=== PATIENT | female | born 1955 | race Caucasian/White ===

== ENCOUNTER → 2016-11-01 | Outpatient (CLI) | payer OTHER | LOC: EMS 16:40 | PROVIDERS: ATTEND Family Medicine | DX: M48.32 Traumatic spondylopathy, cervical region (principal); W11.XXXA Fall on and from ladder, initial encounter; Y93.H2 Activity, gardening and landscaping; Y92.007 Garden or yard of unspecified non-institutional (private) residence as the place of occurrence of the external cause ==

== ENCOUNTER → 2016-11-01 | Emergency (ER) | payer OTHER ==
[~2016-11-01] VITALS: Ht 170.2 cm; Wt 54.0 kg
[~2016-11-01] MED LIST: BACITRACIN OINTMENT 0.9 GM PACKET TOP ONE; DENTAL BOX (GENERAL DRUG SUPPLY CHARGE) MM ONE; KETOROLAC 30 MG/ML (TORADOL) 1 ML VIAL IV ONE; LIDOCAINE/EPINEPHRINE 1% 1:100,000 (XYLOCAINE) 30 ML VIAL INJ ONE; NS IV 500 ML 500 ML IV SCH; ONDANSETRON 2 MG/ML (Z0FRAN) 2 ML VIAL IV ONE; SODIUM CHLORIDE FLUSH 10 ML SYR IV PRN; SODIUM CHLORIDE FLUSH 3 ML SYR IV ONE; TETANUS, DIPTHERIA, PERTUSSIS (ADACELL) VACCINE 0.5 ML VIAL IM ONE; fentaNYL 100 MCG/2 ML VIAL IV ONE
--- OUTSIDE RECORDS SUMMARY | 2016-11-01 13:55 | XMS REPORT | Continuity of Care Document ---
Author Author [facility] Address Unknown Phone Unavailable Allergies Medications Problems Date Dx Coded Attending Type Code Diagnosis Diagnosed By 08/10/2014 Yony De La Fuente MD Ot V76.12 09/01/2014 Yony De La Fuente MD Ot V15.89 09/01/2014 Yony De La Fuente MD Ot V76.12 11/01/2016 Yony De La Fuente MD Ot V76.12 OTH SCREEN MAMMO-MALIGN NEOPLASM OF KAVON 11/01/2016 Yony De La Fuente MD Ot V15.89 HX-HEALTH HAZARDS NEC 11/01/2016 Yony De La Fuente MD Ot V76.12 OTH SCREEN MAMMO-MALIGN NEOPLASM OF KAVON Procedures Results Encounters ACCT No. Visit Date/Time Discharge Status Pt. Type Provider Facility Loc./Unit Complaint [id number] 08/10/2014 08:14:00 2013 23:59:59 CLS Outpatient Sudhakar PERALTA [facility] RAD SCREENING [id number] BILATERAL INPLANTS [id number] 05/28/2013 13:42:00 2012 23:59:59 CLS Outpatient Sudhakar PERALTA [facility] RAD SCREENING V7612 IMPLANTS [id number] 11/01/2016 13:51:00 PEN [facility] ED
--- OUTSIDE RECORDS SUMMARY | 2016-11-01 13:58 | XMS REPORT | Continuity of Care Document ---
Author Author [facility] Address Unknown Phone Unavailable Allergies Medications Problems [...] Status Pt. Type Provider Facility Loc./Unit Complaint [id number] 08/10/2014 08:14:00 2013 23:59:59 CLS Outpatient Sudhakar PERALTA [facility] RAD SCREENING [id number] BILATERAL INPLANTS [id number] 05/28/2013 13:42:00 2012 23:59:59 CLS Outpatient Sudhakar PERALTA [facility] RAD SCREENING V7612 IMPLANTS [id number] 11/01/2016 13:54:00 ACT Emergency [facility] JESSI MELTON [facility] ED
--- NOTE | 2016-11-01 14:00 | NUR ---
T-shirt cut off. Patient's jeans slipped off.
[2016-11-01 14:18] LABS: BASOPHILS % (AUTO) 0 % (0-2); EOSINOPHILS # (AUTO) 0.2 10^3uL; EOSINOPHILS % (AUTO) 3 % (0-4); LYMPHOCYTES # (AUTO) 1.5 X10^3; MEAN CORPUSCULAR HGB CONC 32.7 g/dL (31.0-37.0); MEAN CORPUSCULAR VOLUME 82 FL (80-100); MEAN PLATELET VOLUME 9.5 FL (6.0-9.5); MONOCYTES # (AUTO) 0.4 X10^3; MONOCYTES % (AUTO) 7 % (3-11); NEUTROPHILS % (AUTO) 66 % (51-67); PLATELET COUNT 273 10^3uL (150-450); WHITE BLOOD COUNT 6.01 10^3uL (4.0-11.0)
[2016-11-01 14:24] VITALS: RESP 18
--- NOTE | 2016-11-01 14:25 | Diagnostic Imaging Report ---
EXAM: CHEST 1 VIEW, AP/PA ONLY* INDICATION: Trauma. Fall from 9 foot ladder. COMPARISON: None. FINDINGS: Normal heart size and pulmonary vascularity. Calcified aorta. No focal pulmonary opacity, pleural effusion or pneumothorax. Bilateral breast prostheses. No acute osseous findings. IMPRESSION: No acute cardiopulmonary findings. Dictated by: Dictated on workstation # [id number]
[2016-11-01 14:29] LABS: ALBUMIN 4.2 g/dL (3.4-5.0); ALKALINE PHOSPHATASE 81 U/L (38-126); ANION GAP 12.5 MEQ/L (3-15); BUN/CREATININE RATIO 20 (10-20); CALCULATED IONIZED CALCIUM 4.2 mg/dL (3.8-4.6); TOTAL PROTEIN 6.8 g/dL (6.4-8.5)
[2016-11-01 14:43] LABS: MEAN CORPUSCULAR HEMOGLOBIN 26.9 PG (26.0-34.0)
--- NOTE | 2016-11-01 15:21 | Diagnostic Imaging Report ---
PROCEDURE: CT head and maxillofacial without contrast. TECHNIQUE: Multiple contiguous axial images were obtained through the head and facial bones without the use of intravenous contrast. INDICATION: Trauma. Fall from ladder onto face. COMPARISON: None. FINDINGS: CT HEAD INCLUDING MAXILLOFACIAL: There are minimally displaced nasal bone fractures. No other fractures. Mild mucosal thickening in the left maxillary sinus. The paranasal sinuses are otherwise clear. The mastoid air cells are clear. Mild degenerative changes in the temporomandibular joints. No acute intracranial hemorrhage, hydrocephalus, extra-axial fluid collections or hydrocephalus. Intracranial vascular calcifications. No CT evidence of acute infarction. The orbits are unremarkable. IMPRESSION: Minimally displaced nasal bone fractures. No acute intracranial CT findings. Dictated by: Dictated on workstation # [id number]
--- NOTE | 2016-11-01 15:23 | Diagnostic Imaging Report ---
PROCEDURE: CT cervical spine without contrast. TECHNIQUE: Multiple contiguous axial images were obtained through the cervical spine without the use of intravenous contrast. Sagittal and coronal reformations were then performed. INDICATION: Trauma. Fall from 9 foot ladder onto face. COMPARISON: None. FINDINGS: There is mild anterolisthesis of C3 on C4 and subtle widening of the facet joints at this level, left greater than right. No acute fractures. Vertebral body heights are maintained. No evidence of high-grade spinal canal narrowing on this noncontrast exam. There is scattered mild neural foraminal narrowing due to uncovertebral and facet arthropathy. The visualized paravertebral soft tissues are unremarkable. Scarring in the lung apices. IMPRESSION: No acute fracture is identified. There is mild anterolisthesis and subtle widening of the facet joints at C3-C4. These findings are nonspecific and may be degenerative. However, a ligamentous injury cannot be entirely excluded. Given the mechanism of injury, if there is any cervical spine pain, recommend MRI without contrast for further evaluation. Findings discussed with Dr. Bo Denney at 3:20 PM on 11/01/2016 (by Dr. Beverly). Dictated by: Dictated on workstation # [id number]
[2016-11-01 16:19] LABS: BILIRUBIN,URINE Negative (Negative); CLARITY,URINE Clear; COLOR,URINE Yellow; GLUCOSE, URINE (UA) Negative (Negative); LEUKOCYTE ESTERASE ,URINE Negative (Negative); UROBILINOGEN,URINE 0.2 mg/dL (0.2-1.0)
[2016-11-01 16:43] VITALS: BP 124/72
[2016-11-01 16:43] LABS: AMPHETAMINE SCREEN, URINE Negative (Negative); CANNABINOID SCREEN, URINE Negative (Negative); METHAMPHETAMINE SCREEN URINE S NEGATIVE (NEGATIVE); OPIATE SCREEN URINE Negative (Negative); PROPOXYPHENE STAT NEGATIVE (NEGATIVE); RBC,URINE None Seen /HPF; URINE CENTRIFUGED VOLUME 12 mL
== END | disposition home or self-care (01) ==
LOC: ED 13:54
DX: S01.21XA Laceration without foreign body of nose, initial encounter (principal); S01.511A Laceration without foreign body of lip, initial encounter; S02.2XXA Fracture of nasal bones, initial encounter for closed fracture; S02.5XXA Fracture of tooth (traumatic), initial encounter for closed fracture; W11.XXXA Fall on and from ladder, initial encounter; Y92.009 Unspecified place in unspecified non-institutional (private) residence as the place of occurrence of the external cause
CPT/HCPCS: 12011; 36415; 70450; 70486; 71010; 72125; 80053; 80307; 80320; 81003; 81015; 85025; 85610; 90471; 90715; 96361; 96374; 96375; 99284; J1885; J2405; J3010; J7040; 99283